=== PATIENT | female | born 1990 | race Caucasian/White ===

== ENCOUNTER 2017-06-30 11:36 | Emergency (ER) | payer BC ==
[~2017-06-30] VITALS: Ht 157.5 cm; Wt 88.5 kg
[2017-06-30 11:52] VITALS: BP_SYST 147
[2017-06-30] MEDS ORDERED: NACL 0.9% 1,000 ML IV ONE (12:06)
[2017-06-30 12:21] LABS: BASOPHILS # (AUTO) 0.2 K/uL (0.0-0.2); BASOPHILS % (AUTO) 1.6 % (0.0-2.0); HEMATOCRIT 39.8 % (36-48); HEMOGLOBIN 12.8 g/dL (12.0-16.0); LYMPHOCYTES # (AUTO) 0.7 K/uL (1.0-5.5); LYMPHOCYTES % (AUTO) 6.4 % (20.5-51.5); MEAN CORPUSCULAR HEMOGLOBIN 28 pg (27-31); MEAN CORPUSCULAR HGB CONC 32 % (32-36); MEAN CORPUSCULAR VOLUME 85 fL (79.0-98.0); MONOCYTES # (AUTO) 0.5 K/uL (0.0-1.0); MONOCYTES % (AUTO) 5.4 % (1.7-9.3); NEUTROPHILS # (AUTO) 8.8 K/uL (1.8-7.7); NEUTROPHILS % (AUTO) 86.6 % (40.0-70.0); PLATELET COUNT (AUTO) 203 K/uL (130-430); RED BLOOD CELL COUNT(AUTO) 4.67 MIL/uL (4.2-6.2); RED CELL DISTRIBUTION WIDTH 13.8 % (9.0-15.0); WHITE BLOOD COUNT (AUTO) 10.2 K/uL (4.8-10.8)
[2017-06-30 12:48] LABS: CALCIUM 9.1 mg/dL (8.4-11.0); CREATININE 0.74 mg/dL (0.55-1.30); POTASSIUM 4.1 mmol/L (3.5-5.1)
[2017-06-30 12:54] LABS: TOTAL BILIRUBIN 0.8 mg/dL (0.0-1.0)
[2017-06-30 13:32] LABS: BILIRUBIN,URINE NEGATIVE (NEGATIVE); CLARITY/URINE SL HAZY (CLEAR); COLOR,URINE YELLOW (YELLOW); GLUCOSE,URINE NEGATIVE (NEGATIVE); KETONES,URINE NEGATIVE (NEGATIVE); LEUKOCYTE ESTERASE ,URINE TRACE (NEGATIVE); NITRITE, URINE NEGATIVE (NEGATIVE); PROTEIN URINE NEGATIVE (NEGATIVE); UROBILINOGEN,URINE 0.2 (0.2-1.0)
[2017-06-30 13:33] LABS: BLOOD, URINE TRACE (NEGATIVE)
[2017-06-30] MEDS ORDERED: PIPERACILLIN/TAZOBACTAM 3.375 GM/VIAL (ZOSYN) IV ONE (13:45)
[2017-06-30] MEDS ORDERED: PIPERACILLIN/TAZO 3.375 GM in NS 50 ML IV ONE (13:45)
[2017-06-30 13:49] LABS: BACTERIA,URINE FEW /HPF (None Seen); MUCUS,URINE 1+ /LPF (None Seen); RBC,URINE 0-3 /HPF (0-3)
[2017-06-30 15:26] VITALS: BP_SYST 124
== END 2017-06-30 15:26 | disposition home or self-care (01) ==
LOC: SED 11:36
DX: K80.80 Other cholelithiasis without obstruction (principal); Z90.89 Acquired absence of other organs; Z88.1 Allergy status to other antibiotic agents
CPT/HCPCS: 36415; 74000; 76700; 80053; 81000; 81025; 83690; 85025; 87086; 96361; 96365; 99285; J2543; J7030; J7060

== ENCOUNTER 2019-05-08 15:40 | Emergency (ER) | payer BC ==
[~2019-05-08] VITALS: Ht 157.5 cm; Wt 88.5 kg
[2019-05-08 15:55] VITALS: BP_SYST 129
--- NOTE | 2019-05-08 15:55 | NUR ---
Patient to ER bed 7 to gown for evaluation. Side rails up. Report given to HAYDEN Rose.
--- NOTE | 2019-05-08 15:58 | NUR ---
Pt 7 weeks , , AAOx4 ambulated into ED c/o vaginal spotting starting today with abdominal cramping and a "couple episodes of diarrhea last week." Skin pink dry and warm, breathing even and unlabored. No other injuries/complaints per pt/noted. Will continue to monitor.
--- NOTE | 2019-05-08 16:00 | NUR ---
SO Junior at bedside examining patient.
[2019-05-08 17:26] LABS: CREATININE 0.66 mg/dL (0.55-1.30); POTASSIUM 3.7 mmol/L (3.5-5.1)
[2019-05-08 17:50] LABS: TOTAL BILIRUBIN 0.3 mg/dL (0.0-1.0)
[2019-05-08 18:13] LABS: ALBUMIN 3.8 g/dL (3.4-4.8)
--- NOTE | 2019-05-08 18:31 | NUR ---
Pelvic exam performed by Dr. Junior with Janice RN at bedside for entire examination. Patient tolerated procedure well. Patient assisted to position of comfort after examination.
[2019-05-08 18:55] LABS: BASOPHILS # (AUTO) 0.1 K/uL (0.0-0.2); BASOPHILS % (AUTO) 0.6 % (0.0-2.0); EOSINOPHILS % (AUTO) 0.2 % (0.0-4.0); HEMATOCRIT 38.6 % (36-48); HEMOGLOBIN 12.7 g/dL (12.0-16.0); LYMPHOCYTES # (AUTO) 1.5 K/uL (1.0-5.5); LYMPHOCYTES % (AUTO) 12.7 % (20.5-51.5); MEAN CORPUSCULAR HEMOGLOBIN 29 pg (27-31); MEAN CORPUSCULAR HGB CONC 33 % (32-36); MEAN CORPUSCULAR VOLUME 88 fL (79.0-98.0); MONOCYTES # (AUTO) 0.5 K/uL (0.0-1.0); MONOCYTES % (AUTO) 4.6 % (1.7-9.3); NEUTROPHILS # (AUTO) 9.4 K/uL (1.8-7.7); NEUTROPHILS % (AUTO) 81.9 % (40.0-70.0); PLATELET COUNT (AUTO) 216 K/uL (130-430); RED BLOOD CELL COUNT(AUTO) 4.41 MIL/uL (4.2-6.2); RED CELL DISTRIBUTION WIDTH 14.5 % (9.0-15.0); WHITE BLOOD COUNT (AUTO) 11.5 K/uL (4.8-10.8)
[2019-05-08 19:00] VITALS: BP_SYST 131
--- NOTE | 2019-05-08 19:00 | NUR ---
Patient given written and verbal discharge instructions and verbalizes understanding. ER MD Junior discussed with patient the results and treatment provided. Patient in stable condition. ID arm band removed. No Rx given. Patient educated on pain management and to follow up with PMD. Pain Scale 0. Opportunity for questions provided and answered. Medication side effect fact sheet provided.
== END 2019-05-08 19:00 | disposition home or self-care (01) ==
LOC: SED 15:40
DX: O20.0 Threatened abortion (principal); Z3A.01 Less than 8 weeks gestation of pregnancy; Z90.49 Acquired absence of other specified parts of digestive tract; Z90.89 Acquired absence of other organs; Z88.1 Allergy status to other antibiotic agents
CPT/HCPCS: 36415; 76801; 76817; 80053; 81002; 81025; 85025; 86900; 86901; 99284